=== PATIENT | male | born 1970 | race Two or more races ===

== ENCOUNTER 2018-01-04 08:55 | Day surgery (SDC) | payer OTHER ==
[2018-01-04] MEDS ORDERED: PROPOFOL 40 ML (09:23)
[2018-01-04] MEDS ORDERED: ATROPINE 1 MG/10 ML SYRINGE (10:05)
== END 2018-01-04 12:59 | disposition home or self-care (01) ==
LOC: GIL 08:55
DX: D12.3 Benign neoplasm of transverse colon (principal); K29.50 Unspecified chronic gastritis without bleeding; K44.9 Diaphragmatic hernia without obstruction or gangrene; K21.0 Gastro-esophageal reflux disease with esophagitis; K64.8 Other hemorrhoids
CPT/HCPCS: 43239; 88305; 88312